=== PATIENT | female | born 1955 | race Caucasian/White ===

== ENCOUNTER 2022-05-28 12:31 | Emergency (ER) | payer OTHER ==
[~2022-05-28] VITALS: Ht 152.4 cm; Wt 63.0 kg
[~2022-05-28 12:31] MED LIST: ASPI81TA39 PO; METF-1211 PO
[2022-05-28] MEDS ORDERED: LORA10TA7 PO (12:52)
[2022-05-28] MEDS ORDERED: CALC-1277 PO (12:52)
[2022-05-28] MEDS ORDERED: OMEP20CA12 PO (12:52)
[2022-05-28] MEDS ORDERED: LISI5TAB21 PO (12:52)
[2022-05-28] MEDS ORDERED: EMPA25TA3 PO (12:52)
[2022-05-28] MEDS ORDERED: ASPI-1444 PO (12:52)
[2022-05-28] MEDS ORDERED: GLIM4 PO (12:52)
[2022-05-28] MEDS ORDERED: MULT-1366 PO (12:52)
[2022-05-28 14:22] LABS: APPEARANCE,URINE CLEAR (CLEAR); BILIRUBIN,URINE NEGATIVE (NEGATIVE); GLUCOSE, URINE (UA) >=1000 mg/dL (NEGATIVE); KETONES,URINE NEGATIVE (NEGATIVE); LEUKOCYTE ESTERASE ,URINE SMALL (NEGATIVE); NITRATE,URINE POSITIVE (NEGATIVE); OCCULT BLOOD,URINE NEGATIVE (NEGATIVE); PH,URINE 6.5 (5.0-8.0); PROTEIN,URINE NEGATIVE (NEGATIVE); SPECIFIC GRAVITIY, URINE 1.025 (1.003-1.030); UROBILINOGEN,URINE <=1.0 mg/dL (<=1.0)
[2022-05-28 14:30] LABS: BACTERIA,URINE Few /HPF (None Seen); RBC,URINE 0-2 /HPF (0-2)
[2022-05-28 14:31] LABS: AMORPHOUS SEDIMENT,UR Few /LPF (None Seen); SQUAMOUS EPITHELIAL CELL,UR Few /LPF (None Seen)
[2022-05-28] MEDS ORDERED: CEPH-558 PO (15:07)
[2022-05-28] MEDS ORDERED: PHEN-674 PO (15:07)
[2022-05-28 15:20] VITALS: BP 136/85
== END 2022-05-28 15:23 | disposition home or self-care (01) ==
LOC: EMS 12:44
DX: N39.0 Urinary tract infection, site not specified (principal); E11.9 Type 2 diabetes mellitus without complications; I10 Essential (primary) hypertension; Z87.39 Personal history of other diseases of the musculoskeletal system and connective tissue
CPT/HCPCS: 81001; 82962; 87086; 87186; 99283

== ENCOUNTER 2024-12-11 10:09 | Emergency (ER) | payer MEDICARE, OTHER ==
[~2024-12-11] VITALS: Ht 152.4 cm; Wt 67.5 kg
[~2024-12-11 10:09] MED LIST changes: +ASPI-1444 PO; -ASPI81TA39 PO; +CALC-1277 PO; +CEPH-558 PO; +EMPA25TA3 PO; +GLIM-8 PO; +LISI5TAB21 PO; +LORA10TA7 PO; +MULT-1366 PO; +OMEP20CA12 PO; +PHEN-674 PO
[2024-12-11 10:31] VITALS: TEMP 98.2
[2024-12-11 10:51] LABS: GLUCOMETER DEV NAME(LOC) ERT.6; GLUCOSE,POINT OF CARE 457 MG/DL (70-110)
[2024-12-11 11:22] LABS: BASOPHILS % (AUTO) 0.2 % (0.0-2.0); EOSINOPHILS % (AUTO) 0.2 % (1.0-6.0); HEMATOCRIT 42.2 % (36-46); HEMOGLOBIN 13.6 g/dL (12.0-16.0); LYMPHOCYTES % (AUTO) 9.3 % (22.0-44.0); MEAN CORPUSCULAR HEMOGLOBIN 30.3 pg (26.0-34.0); MEAN CORPUSCULAR HGB CONC 32.3 G/dL (31.0-37.0); MEAN CORPUSCULAR VOLUME 94 fL (80-100); MONOCYTES # (AUTO) 0.6 K/uL (0.1-1.0); MONOCYTES % (AUTO) 5.7 % (2.0-9.0); NEUTROPHILS # (AUTO) 8.8 K/uL (1.8-7.7); NEUTROPHILS % (AUTO) 84.6 % (40.0-70.0); PLATELET COUNT (AUTO) 173 K/uL (150-450); RED BLOOD CELL COUNT(AUTO) 4.49 MIL/uL (4.00-5.20); RED CELL DISTRIBUTION WIDTH 13.7 % (11.5-14.5); WHITE BLOOD COUNT (AUTO) 10.4 K/uL (4.5-11.0)
[2024-12-11 11:33] LABS: ANION GAP 10 mmol/L (8-16); CALCIUM, TOTAL 9.3 mg/dL (8.8-10.5); CARBON DIOXIDE 27 mmol/L (22-29); CHLORIDE 99 mmol/L (98-107); CREATININE 0.66 mg/dL (0.60-1.30); GLOMERULAR FILTR. RATE CALC > 60 mL/min (>60); LIPASE 30 U/L (16-77); POTASSIUM 4.3 mmol/L (3.5-5.1); SODIUM SERUM 136 mmol/L (136-145); UREA NITROGEN, BLOOD 13 mg/dL (7-18)
[2024-12-11 11:34] LABS: GLUCOSE,RANDOM 442 mg/dL (70-110)
[2024-12-11 11:37] LABS: APPEARANCE,URINE HAZY (CLEAR); BILIRUBIN,URINE NEGATIVE (NEGATIVE); COLOR,URINE LIGHT YELLOW (YELLOW); GLUCOSE, URINE (UA) >=1000 mg/dL (NEGATIVE); LEUKOCYTE ESTERASE ,URINE LARGE (NEGATIVE); NITRATE,URINE POSITIVE (NEGATIVE); OCCULT BLOOD,URINE LARGE (NEGATIVE); PH,URINE 5.5 (5.0-8.0); PROTEIN,URINE TRACE mg/dL (NEGATIVE); SPECIFIC GRAVITIY, URINE 1.024 (1.003-1.030); UROBILINOGEN,URINE <=1.0 mg/dL (<=1.0)
[2024-12-11 11:53] LABS: ACETONE,BLOOD NEGATIVE (NEGATIVE)
[2024-12-11 12:02] LABS: BACTERIA,URINE Few /HPF (None Seen); SQUAMOUS EPITHELIAL CELL,UR Few /LPF (None Seen); WBC,URINE 51-100 /HPF (0-5)
[2024-12-11] MEDS: CefTRIAXone 1 GM/DEXTROSE 50 ML IV ONE (12:25)
[2024-12-11 12:57] VITALS: BP 136/77; PULSE 96; RESP 16; O2SAT 97
[2024-12-11] MEDS ORDERED: CEPH-558 PO (13:28)
[2024-12-14] MEDS ORDERED: GLIP10TA16 PO (09:13)
[2024-12-14] MEDS ORDERED: METF-446 PO (09:13)
[2024-12-14] MEDS ORDERED: SITA100 PO (09:13)
[2024-12-14] MEDS ORDERED: ALEN70TA80 PO (09:13)
[2024-12-14] MEDS ORDERED: CEPH500C3 PO (09:13)
[2024-12-14] MEDS ORDERED: CHOL200074 PO (09:13)
[2024-12-14] MEDS ORDERED: ASPI-1522 PO (09:13)
== END 2024-12-11 13:51 | disposition home or self-care (01) ==
LOC: EMS 10:12
DX: N39.0 Urinary tract infection, site not specified (principal); E11.9 Type 2 diabetes mellitus without complications; I10 Essential (primary) hypertension; Z79.82 Long term (current) use of aspirin; Z79.84 Long term (current) use of oral hypoglycemic drugs; Z79.899 Other long term (current) drug therapy
CPT/HCPCS: 99285; 96365; 80048; 81001; 82009; 82962; 83690; 85025; 87077; 87086; 36415; J0696; 87186